=== PATIENT | male | born 1955 | race Two or more races ===

== ENCOUNTER 2020-04-28 08:34 | Inpatient (IN) | payer OTHER ==
[2020-04-28] VITALS (11 sets, daily range): BP systolic 125–160; BP diastolic 54–103
[~2020-04-28] VITALS: Ht 170.2 cm; Wt 77.1 kg
--- NOTE | 2020-04-28 08:45 | Emergency Room Report ---
History of Present Illness General Chief Complaint: Altered Level of Consciousness Present Illness HPI Male here with altered mental status. Patient is a Paresh Martínez. Per education paraprofessional report the patient was found outside a liquor store. Liquor store wire spinner had sold the patient 2 bottles of vodka last night and when the store wire spinner came to open the store this morning the patient was laying on the sidewalk in front of the liquor store next to two empty vodka bottles. When paramedics arrived the patient was mumbling incoherently. Patient unable to participate in review of systems secondary to altered mental status. Allergies: Coded Allergies: No Known Allergies (Unverified , 04/28/20) COVID-19 Screening Contact w/high risk pt: No Experienced COVID-19 symptoms?: No COVID-19 Testing performed INTERNAL COMBUSTION ENGINE SUBASSEMBLER: No Review of Systems All Other Systems: limited - Altered mental status Physical Exam Vital Signs Date Time Temp Pulse Resp B/P (MAP) Pulse Ox O2 Delivery O2 Flow Rate FiO2 04/28/20 08:34 82 14 154/109 (124) 98 Room Air Sp02 EP Interpretation: reviewed, normal General Appearance: no apparent distress, non-toxic, other - Mumbles incoherently. Smells of alcohol Head: normocephalic, atraumatic Eyes: bilateral eye normal inspection, bilateral eye PERRL ENT: hearing grossly normal, normal pharynx, no angioedema Neck: full range of motion, supple/symm/no masses Respiratory: chest non-tender, lungs clear, normal breath sounds, speaking full sentences Cardiovascular #1: regular rate, rhythm, no edema Cardiovascular #2: 2+ carotid (R), 2+ carotid (L), 2+ radial (R), 2+ radial (L), 2+ dorsalis pedis (R), 2+ dorsalis pedis (L) Gastrointestinal: normal bowel sounds, non tender, soft, non-distended, no guarding, no rebound Rectal: deferred Genitourinary: normal inspection, no CVA tenderness Musculoskeletal: back normal, normal range of motion, gait/station normal, non- tender Neurologic: sensory intact, other - Appears heavily intoxicated. Mumbles incoherently. Eyes are closed but patient responds to pain. Moves all extremities equally Psychiatric: judgement/insight normal, memory normal, mood/affect normal, no suicidal/homicidal ideation Lymphatic: no adenopathy Medical Decision Making Diagnostic Impression: Primary Impression: Altered level of consciousness ER Course Procedure: CT Head no Contrast EXAM: CT CT Head no Contrast INDICATION: Altered mental status. TECHNIQUE: Axial images of the brain were obtained with subsequent sagittal and coronal reformats. All CT scans at this facility are performed using dose modulation techniques as appropriate to a performed exam including the following: automated exposure control with adjustment of the mA and/or kV according to patient size. COMPARISON STUDY: None. RADIATION DOSE: CTDIvol: 53.4 mGy DLP: 1045.5 mGy-cm Dose information generated by the CT scanner is available in PACS. FINDINGS: Age related volume loss noted. There is no acute large territory cortical infarct, hemorrhage, mass effect or shift. Ventricles and cisterns as well as brainstem and posterior fossa appear unremarkable. The sellar region is normal. Sinuses, mastoid air cells and bony calvarium appear intact. IMPRESSION: AGE RELATED SENESCENT CHANGES. NO ACUTE INTRACRANIAL ABNORMALITY. Laboratory Tests Test 04/28/20 09:04 04/28/20 09:41 04/28/20 10:00 White Blood Count 2.5 K/UL (4.8-10.8) L Red Blood Count 5.14 M/UL (4.70-6.10) Hemoglobin 14.8 G/DL (14.2-18.0) Hematocrit 45.8 % (42.0-52.0) Mean Corpuscular Volume 89 FL (80-99) Mean Corpuscular Hemoglobin 28.8 PG (27.0-31.0) Mean Corpuscular Hemoglobin Concent 32.3 G/DL (32.0-36.0) Red Cell Distribution Width 17.2 % (11.6-14.8) H Platelet Count 381 K/UL (150-450) Mean Platelet Volume 6.4 FL (6.5-10.1) L Neutrophils (%) (Auto) % (45.0-75.0) Lymphocytes (%) (Auto) % (20.0-45.0) Monocytes (%) (Auto) % (1.0-10.0) Eosinophils (%) (Auto) % (0.0-3.0) Basophils (%) (Auto) % (0.0-2.0) Differential Total Cells Counted 100 Neutrophils % (Manual) 51 % (45-75) Lymphocytes % (Manual) 44 % (20-45) Monocytes % (Manual) 5 % (1-10) Eosinophils % (Manual) 0 % (0-3) Basophils % (Manual) 0 % (0-2) Band Neutrophils 0 % (0-8) Platelet Estimate Adequate Platelet Morphology Normal Anisocytosis 2+ Sodium Level 143 MMOL/L (136-145) Potassium Level 4.9 MMOL/L (3.5-5.1) Chloride Level 106 MMOL/L (98-107) Carbon Dioxide Level 24 MMOL/L (21-32) Anion Gap 13 mmol/L (5-15) Blood Urea Nitrogen 7 mg/dL (7-18) Creatinine 0.3 MG/DL (0.55-1.30) L Estimated Glomerular Filtration Rate > 60 mL/min (>60) Glucose Level 110 MG/DL (74-106) H Calcium Level 8.5 MG/DL (8.5-10.1) Total Bilirubin 0.4 MG/DL (0.2-1.0) Aspartate Amino Transferase (AST) 87 U/L (15-37) H Alanine Aminotransferase (ALT) 47 U/L (12-78) Alkaline Phosphatase 119 U/L (46-116) H Total Protein 7.8 G/DL (6.4-8.2) Albumin 3.7 G/DL (3.4-5.0) Globulin 4.1 g/dL Albumin/Globulin Ratio 0.9 (1.0-2.7) L Salicylates Level 1.7 ug/mL (2.8-20) L Acetaminophen Level < 2 MCG/ML (10-30) L Serum Alcohol 380 mg/dL Urine Opiates Screen Negative (NEGATIVE) Urine Barbiturates Screen Positive (NEGATIVE) H Phencyclidine (PCP) Screen Negative (NEGATIVE) Urine Amphetamines Screen Negative (NEGATIVE) Urine Benzodiazepines Screen Positive (NEGATIVE) H Urine Cocaine Screen Negative (NEGATIVE) Urine Marijuana (THC) Screen Negative (NEGATIVE) Male of unknown age here with alcohol intoxication. CT head unremarkable. Patient highly elevated alcohol level of 380. Urine drug screen positive for benzodiazepines and barbiturates. Patient began to awaken soon after arrival to the emergency department. He was screaming obscenities at the nurses and was given Haldol and Ativan. He required another dose of IV Ativan, 4 mg total. P atient was sleeping soundly in the emergency department. He started to have mild tremulousness and was given 50 mg of p.o. Librium, thiamine, folate. Signed out to oncoming physician pending sobriety. Last Vital Signs Date Time Temp Pulse Resp B/P (MAP) Pulse Ox O2 Delivery O2 Flow Rate FiO2 04/28/20 08:34 82 14 154/109 (124) 98 Room Air Imtiaz Johnson M.D. Apr 28, 2020 08:45
--- NOTE | 2020-04-28 09:00 | NUR ---
ED Nurse Note: Pt BIBA R26 possible overdose ETOH. Pt was found on streets, current GCS is 5. Pt is a&ox0, sleeping, drowsy, responsive to pain stimulation. Pt is set up on monitor. Hands are cold to touch. Blood drawn and sent to lab.
--- NOTE | 2020-04-28 09:05 | NUR ---
ED Nurse Note: Pt taken to CT.
[2020-04-28 09:16] LABS: HEMATOCRIT 45.8 % (42.0-52.0); HEMOGLOBIN 14.8 G/DL (14.2-18.0); MEAN CORPUSCULAR VOLUME 89 FL (80-99); PLATELET COUNT 381 K/UL (150-450); RED BLOOD COUNT 5.14 M/UL (4.70-6.10); RED CELL DISTRIBUTION WIDTH 17.2 % (11.6-14.8); WHITE BLOOD COUNT 2.5 K/UL (4.8-10.8)
--- NOTE | 2020-04-28 09:16 | NUR ---
ED Nurse Note: Pt returned from CT.
[2020-04-28 09:59] LABS: ANION GAP 13 mmol/L (5-15); BLOOD UREA NITROGEN 7 mg/dL (7-18); CALCIUM 8.5 MG/DL (8.5-10.1); CARBON DIOXIDE 24 MMOL/L (21-32); CHLORIDE 106 MMOL/L (98-107); CREATININE 0.3 MG/DL (0.55-1.30); POTASSIUM 4.9 MMOL/L (3.5-5.1); SODIUM 143 MMOL/L (136-145)
[2020-04-28] MEDS ORDERED: Haloperidol 5mg/ml Inj IM ONE ×2 (10:00→20:30)
[2020-04-28 10:04] LABS: ALANINE AMINOTRANSFERASE 47 U/L (12-78); ALBUMIN 3.7 G/DL (3.4-5.0); ALBUMIN/GLOBULIN RATIO 0.9 (1.0-2.7); ALKALINE PHOSPHATASE 119 U/L (46-116); ASPARTATE AMINO TRANSFERASE 87 U/L (15-37); BILIRUBIN,TOTAL 0.4 MG/DL (0.2-1.0)
--- NOTE | 2020-04-28 10:05 | Diagnostic Imaging Report ---
EXAM: CT CT Head no Contrast INDICATION: Altered mental status. TECHNIQUE: Axial images of the brain were obtained with subsequent sagittal and coronal reformats. All CT scans at this facility are performed using dose modulation techniques as appropriate to a performed exam including the following: automated exposure control with adjustment of the mA and/or kV according to patient size. COMPARISON STUDY: None. RADIATION DOSE: CTDIvol: 53.4 mGy DLP: 1045.5 mGy-cm Dose information generated by the CT scanner is available in PACS. FINDINGS: Age related volume loss noted. There is no acute large territory cortical infarct, hemorrhage, mass effect or shift. Ventricles and cisterns as well as brainstem and posterior fossa appear unremarkable. The sellar region is normal. Sinuses, mastoid air cells and bony calvarium appear intact. IMPRESSION: AGE RELATED SENESCENT CHANGES. NO ACUTE INTRACRANIAL ABNORMALITY.
[2020-04-28] MEDS ORDERED: LORazepam Inj 2mg/ml 1ml IV ONE ×4 (10:15→19:45)
--- NOTE | 2020-04-28 11:00 | NUR ---
ED Nurse Note: Pt is restless. ERMD notified, will order meds.
[2020-04-28] MEDS ORDERED: chlordiazePOXIDE 25mg Cap ORAL ONE (11:15)
[2020-04-28] MEDS ORDERED: Thiamine 100mg tab ORAL ONE (11:15)
--- NOTE | 2020-04-28 13:45 | NUR ---
ED Nurse Note: Pt snoring in bed, VSS.
[2020-04-28] MEDS ORDERED: Thiamine 100mg tab ONE (13:54)
[2020-04-28] MEDS ORDERED: chlordiazePOXIDE 25mg Cap ONE (13:54)
--- NOTE | 2020-04-28 15:37 | NUR ---
ED Nurse Note: Pt is a&ox3, awake, calm. ERMD notified. He is able to give his name.
--- NOTE | 2020-04-28 17:00 | NUR ---
ED Nurse Note: Pt pulled out F/C, there is small amount of bleeding. ERMD is aware. No new orders for now.
--- NOTE | 2020-04-28 19:22 | NUR ---
HAND-OFF: Report given to Natalya MCGRATH.
--- NOTE | 2020-04-28 19:25 | NUR ---
ED Nurse Note: Recieved pt in bed awake and alert, pt has name of monica suarez but gave name, reported to md and charge nurse, pt has large amopunt of blood on him and clothing completely soiled with blood, pt had feliz which looks as if he pulled out with balloon still inflated and blood all over, pt was palced on cardiac monitoring with heart rate of 150's, pt noted with severe tremors and shaking and asking for water, pt cleaned, MD informed, new orders recieved, will resume care as ordered and closely monitor.
--- NOTE | 2020-04-28 19:56 | NUR ---
ED Nurse Note: Recived care of pt dt need of isolation room. Pt is tachy 150's and states he has body pains, notable tremors in both arms, pt is able to speak in complete sentances and make needs known.
[2020-04-28] MEDS ORDERED: LORazepam Inj 2mg/ml 1ml IM ONE (20:30)
--- NOTE | 2020-04-28 20:30 | NUR ---
ED Nurse Note: Pt is aggitated, pulled out his IV, changed bedding and clothes, pt is yelling at staff, a/o/2
[2020-04-28] MEDS ORDERED: LORazepam Inj 2mg/ml 1ml ONE (20:33)
[2020-04-28] MEDS ORDERED: Haloperidol 5mg/ml Inj ONE (20:33)
--- NOTE | 2020-04-28 20:47 | NUR ---
ED Nurse Note: New ICV is placed, fluids are running as ordered. IM meds given
--- NOTE | 2020-04-28 20:58 | NUR ---
ED Nurse Note: ER MD aware of HR, he is at bedside.
[2020-04-28] MEDS ORDERED: LORazepam 20 MG in NS 90 ML IV ONE (21:00)
--- NOTE | 2020-04-28 21:50 | Emergency Room Report ---
History of Present Illness General Chief Complaint: Altered Level of Consciousness Source: EMS Present Illness Allergies: Coded Allergies: No Known Allergies (Unverified , 04/28/20) COVID-19 Screening Contact w/high risk pt: No Experienced COVID-19 symptoms?: No COVID-19 Testing performed PROPERTY MANAGEMENT INTERN: No Nursing Documentation-[facility] Past Medical History Deferred: Pt Cognitively Impaired Physical Exam Vital Signs Date Time Temp Pulse Resp B/P (MAP) Pulse Ox O2 Delivery O2 Flow Rate FiO2 04/28/20 08:34 82 14 154/109 (124) 98 Room Air 04/28/20 19:25 98.8 Procedures Critical Care Time Critical Care Time i. I feel this is a highly complex case requiring extensive working including EKG/Rhythm strip, Xray/CT/US, Blood/urine lab work, repeat exams while in ED, and administration of strong opiates/narcotics for pain control, admission to hospital or close patient follow up. Total time: 90 min bedside evaluation and treatment excludes procedures (EKG). Reason for critical care: Alcohol withdrawal, tachycardia, altered level of consciousness Possible complications: hypotension, hypertension, PR, shock, arrhythmias, metabolic acidosis, end organ damage, respiratory failure. Interventions: Labs, fluids, haldol/Ativan, CT head, cardiac monitoring, Ativan drip Course: Patient signed out to me pending sobriety. Brought in for alcohol intoxication. Alcohol level elevated. Drug screen positive for barbiturates and benzos. Patient remains confused and very tremulous. CT head negative. After multiple rounds of Ativan and Haldol patient remains disoriented and tachycardic. Started on Ativan drip. Patient will be admitted to ICU Consultations: nursing staff, EMS, family Performed by: Dr Macias Tolerated well condition = critical j. because of unstable vital signs this patient had a condition that could potentially threaten life or limb. I feel this is a critical patient who required my full attention while patient was considered critical. Total Critical Care Time excluding procedures was greater than 90 minutes Medical Decision Making Diagnostic Impression: Primary Impression: Altered level of consciousness Additional Impression: Alcohol withdrawal Qualified Codes: F10.239 - Alcohol dependence with withdrawal, unspecified ER Course Signed out to me pending sobriety Brought in by EMS for altered level of consciousness. CT head negative. Alcohol greater than 300. Drug screen positive for benzos and barbiturates And agitated. Given Haldol/Ativan. When awake patient remains very tremulous. Tachycardic. Despite multiple rounds of Ativan IV fluids and Haldol patient remains unchanged. Tachycardic to the 160s. Started on Ativan drip. Will go to the ICU Laboratory Tests Test 04/28/20 09:04 04/28/20 09:41 04/28/20 10:00 White Blood Count 2.5 K/UL (4.8-10.8) L Red Blood Count 5.14 M/UL (4.70-6.10) Hemoglobin 14.8 G/DL (14.2-18.0) Hematocrit 45.8 % (42.0-52.0) Mean Corpuscular Volume 89 FL (80-99) Mean Corpuscular Hemoglobin 28.8 PG (27.0-31.0) Mean Corpuscular Hemoglobin Concent 32.3 G/DL (32.0-36.0) Red Cell Distribution Width 17.2 % (11.6-14.8) H Platelet Count 381 K/UL (150-450) Mean Platelet Volume 6.4 FL (6.5-10.1) L Neutrophils (%) (Auto) % (45.0-75.0) Lymphocytes (%) (Auto) % (20.0-45.0) Monocytes (%) (Auto) % (1.0-10.0) Eosinophils (%) (Auto) % (0.0-3.0) Basophils (%) (Auto) % (0.0-2.0) Differential Total Cells Counted 100 Neutrophils % (Manual) 51 % (45-75) Lymphocytes % (Manual) 44 % (20-45) Monocytes % (Manual) 5 % (1-10) Eosinophils % (Manual) 0 % (0-3) Basophils % (Manual) 0 % (0-2) Band Neutrophils 0 % (0-8) Platelet Estimate Adequate Platelet Morphology Normal Anisocytosis 2+ Sodium Level 143 MMOL/L (136-145) Potassium Level 4.9 MMOL/L (3.5-5.1) Chloride Level 106 MMOL/L (98-107) Carbon Dioxide Level 24 MMOL/L (21-32) Anion Gap 13 mmol/L (5-15) Blood Urea Nitrogen 7 mg/dL (7-18) Creatinine 0.3 MG/DL (0.55-1.30) L Estimat Glomerular Filtration Rate > 60 mL/min (>60) Glucose Level 110 MG/DL (74-106) H Calcium Level 8.5 MG/DL (8.5-10.1) Total Bilirubin 0.4 MG/DL (0.2-1.0) Aspartate Amino Transf (AST/SGOT) 87 U/L (15-37) H Alanine Aminotransferase (ALT/SGPT) 47 U/L (12-78) Alkaline Phosphatase 119 U/L (46-116) H Total Protein 7.8 G/DL (6.4-8.2) Albumin 3.7 G/DL (3.4-5.0) Globulin 4.1 g/dL Albumin/Globulin Ratio 0.9 (1.0-2.7) L Salicylates Level 1.7 ug/mL (2.8-20) L Acetaminophen Level < 2 MCG/ML (10-30) L Serum Alcohol 380 mg/dL Urine Opiates Screen Negative (NEGATIVE) Urine Barbiturates Screen Positive (NEGATIVE) H Phencyclidine (PCP) Screen Negative (NEGATIVE) Urine Amphetamines Screen Negative (NEGATIVE) Urine Benzodiazepines Screen Positive (NEGATIVE) H Urine Cocaine Screen Negative (NEGATIVE) Urine Marijuana (THC) Screen Negative (NEGATIVE) CT/MRI/US Diagnostic Results CT/MRI/US Diagnostic Results : Imaging Test Ordered: CT Head Impression Procedure: CT Head no Contrast EXAM: CT CT Head no Contrast INDICATION: Altered mental status. TECHNIQUE: Axial images of the brain were obtained with subsequent sagittal and coronal reformats. All CT scans at this facility are performed using dose modulation techniques as appropriate to a performed exam including the following: automated exposure control with adjustment of the mA and/or kV according to patient size. COMPARISON STUDY: None. RADIATION DOSE: CTDIvol: 53.4 mGy DLP: 1045.5 mGy-cm Dose information generated by the CT scanner is available in PACS. FINDINGS: Age related volume loss noted. There is no acute large territory cortical infarct, hemorrhage, mass effect or shift. Ventricles and cisterns as well as brainstem and posterior fossa appear unremarkable. The sellar region is normal. Sinuses, mastoid air cells and bony calvarium appear intact. IMPRESSION: AGE RELATED SENESCENT CHANGES. NO ACUTE INTRACRANIAL ABNORMALITY. Last Vital Signs Date Time Temp Pulse Resp B/P (MAP) Pulse Ox O2 Delivery O2 Flow Rate FiO2 04/28/20 21:30 20 Room Air 04/28/20 20:58 98.6 165 135/83 100 Status: improved Disposition: ADMITTED INPATIENT Condition: Critical Referrals: NOT CHOSEN IPA/,REFERRING (PCP) Baldev Macias MD Apr 28, 2020 21:49
--- NOTE | 2020-04-28 22:05 | NUR ---
ED Nurse Note: Replaced the pts trini that he pulled out per ER MD order. Ativan drip started. Pt HR is 148. Pt extremely aggitated.
[2020-04-28] MEDS ORDERED: LORazepam 20 MG in NS 90 ML IV SCH (22:15)
--- NOTE | 2020-04-28 22:45 | NUR ---
ED Nurse Note: Report given to ALCIDES Cordero
--- NOTE | 2020-04-28 23:00 | NUR ---
NURSE NOTES: received report from ALCIDES Oconnell. Patient admitted from ER via gurney accompanied by PSYCH RN and scuba diving instructor. patient awake,alert to name with confusion and forgetfulness, restless. On Ativan 2mg/hr, NS at 150cc/hr. Patient admitted for ETOH and AMS under the care of Dr. Isaac. Patient oxygen saturation Room air 100%. Body assessment done noted with dry skin. skin redness on left elbow skin warm to touch, multiple dry scab om right foot. .HOB elevated. Norton intact with hematuria and bleeding patient pulled out Norton from ER per Er report. Instructed patient to use call light for assistance. bed alarm on. bed locked and in low position.call light within easy reach. will continue plan of care.
--- NOTE | 2020-04-28 23:13 | NUR ---
NURSE NOTES: called Dr. Isaac and left message for admission orders.
--- NOTE | 2020-04-28 23:21 | NUR ---
TRANSFER TO FLOOR: Patient transferred to as ordered, per ER MD. Report given to Consuelo MCGRATH. Belongings sent with pt. Transfered on tele monitor with RN and tech assist. saftey maintained. Room 246 G ICU
--- NOTE | 2020-04-28 23:23 | NUR ---
NURSE NOTES: Dr. Hackett called back gave order for Ativan per MD he will put the admission order.
[2020-04-28] MEDS ORDERED: Thiamine 100mg in D5W 55ml IVPB ONE (23:30)
[2020-04-28] MEDS ORDERED: Folic Acid 1 MG, Magnesium Sulfate 2,000 MG, Multivitamin - 12 Injection 10 ML in Sodiu... IV SCH (23:30)
[2020-04-28] MEDS: LORazepam 20 MG in NS 90 ML IV SCH (23:43)
[2020-04-28] MEDS: Pantoprazole Inj IVP SCH (23:46)
[2020-04-29] VITALS (26 sets, daily range): BP systolic 104–166; BP diastolic 57–104
[2020-04-29] MEDS ORDERED: Thiamine HCl 100mg/ml 2 ml Inj ONE (00:06)
--- NOTE | 2020-04-29 01:23 | NUR ---
NURSE NOTES: patient in bed awake,alert to name, patient restless with episode of pulling out tubing and IV line encouraged pt to verbalized needs,fears and feelings to staff, explained the importance and risk and benefits of Norton and IV tubing. patient with bilateral wrist restraint. call light within easy reach.
[2020-04-29] MEDS: cefTRIAXone 1 GM in D5W 55 ML IVPB SCH (02:45)
--- NOTE | 2020-04-29 03:00 | NUR ---
NURSE NOTES: patient swab for COVID 19 PCR. send to lab.
--- NOTE | 2020-04-29 04:00 | NUR ---
NURSE NOTES: patient with episode of x1 BM, kept clean and dry. frequent visual checks. call light within easy reach. will continue plan of care.
[2020-04-29 05:06] LABS: HEMATOCRIT 33.6 % (42.0-52.0); HEMOGLOBIN 10.5 G/DL (14.2-18.0); LYMPHOCYTES % (AUTO) 13.9 % (20.0-45.0); MEAN CORPUSCULAR VOLUME 91 FL (80-99); MONOCYTES % (AUTO) 12.5 % (1.0-10.0); NEUTROPHILS % (AUTO) 70.6 % (45.0-75.0); PLATELET COUNT 289 K/UL (150-450); RED BLOOD COUNT 3.72 M/UL (4.70-6.10); RED CELL DISTRIBUTION WIDTH 17.6 % (11.6-14.8); WHITE BLOOD COUNT 6.4 K/UL (4.8-10.8)
--- NOTE | 2020-04-29 05:31 | NUR ---
NURSE NOTES: patient in bed sleeping comfortably. no s/s of acute distress noted. comfort measure provided. will continue plan of care.
[2020-04-29 05:34] LABS: ALANINE AMINOTRANSFERASE 31 U/L (12-78); ALBUMIN 2.8 G/DL (3.4-5.0); ALBUMIN/GLOBULIN RATIO 0.9 (1.0-2.7); ALKALINE PHOSPHATASE 89 U/L (46-116); ANION GAP 14 mmol/L (5-15); ASPARTATE AMINO TRANSFERASE 56 U/L (15-37); BILIRUBIN,TOTAL 0.6 MG/DL (0.2-1.0); BLOOD UREA NITROGEN 7 mg/dL (7-18); CALCIUM 7.9 MG/DL (8.5-10.1); CARBON DIOXIDE 22 MMOL/L (21-32); CHLORIDE 104 MMOL/L (98-107); CREATININE 0.7 MG/DL (0.55-1.30); POTASSIUM 3.9 MMOL/L (3.5-5.1); SODIUM 140 MMOL/L (136-145)
[2020-04-29] MEDS: LORazepam 20 MG in NS 90 ML IV SCH (06:55)
--- NOTE | 2020-04-29 06:59 | NUR ---
CASE MANAGEMENT:REVIEW 59 YR OLD MALE BIBA FROM STREET CC: ALOC. FOUND WITH 2 EMPTY BOTTLES OF VODKA SI: ALCOHOL WITHDRAWAL. AMS 98.8 82 14 154/109 98% ON RA WBC-2.5 SERUM ALCOHOL+380 IS: 1L NS BOLUS IV ATIVAN X5 HALDOL IM X2 IV BANANA BAG IV THIAMINE LIBRIUM PO CT HEAD : TO ICU PLAN: NOVEL COVID PENDING
--- NOTE | 2020-04-29 07:20 | NUR ---
NURSE HAND-OFF REPORT: Latest Vital Signs: Temperature 98.0 , Pulse 128 , B/P 119 /70 , Respiratory Rate 23 , O2 SAT 100 , Room Air, O2 Flow Rate . Vital Sign Comment: EKG Rhythm: Sinus Tachycardia Rhythm change?: N Notified?: Nan -Dr. Roxann REDDY Response: Latest Mo Fall Score: 50 Fall Risk: High Risk Safety Measures: Call light Within Reach, Bed Alarm Zone 2, Side Rails Side Rails x2, Bed position Low and Locked. Fall Precautions: Yellow Socks Door Sign Patient Fall Education Report given to .
--- NOTE | 2020-04-29 07:22 | NUR ---
NURSE NOTES: Received report from ALCIDES Cordero. Patient is AAO x 2-3 w/ intermittent confusion. On room air. Feliz intact and draining with dark natasha color urine, s/p pulled out feliz. Right FA 20G IV intact and running with NS @150ml/hr, ativan 2mg/hr. Bilateral soft wrist bands restraints on. Bed at lowest position. Kept dry, clean and comfortable. Will continue plan of care.
[2020-04-29] MEDS ORDERED: Thiamine 100mg in D5W 55ml IVPB ONE (08:00)
[2020-04-29] MEDS ORDERED: Folic Acid 1 MG, Magnesium Sulfate 2,000 MG, Multivitamin - 12 Injection 10 ML in Sodiu... IV ONE (08:00)
[2020-04-29] MEDS ORDERED: Folic Acid 1 MG, Magnesium Sulfate 2,000 MG, Multivitamin - 12 Injection 10 ML in Sodiu... IV SCH (09:00)
[2020-04-29] MEDS ORDERED: Thiamine 100mg in D5W 55ml IVPB SCH (09:00)
[2020-04-29] MEDS: Pantoprazole Inj IVP SCH (09:09)
--- NOTE | 2020-04-29 10:00 | NUR ---
RADIOLOGY DEPT., CHEST X-RAY DONE.-P.DYE
--- NOTE | 2020-04-29 10:36 | NUR ---
NURSE NOTES: Seen by Dr. Hackett and assessed patient. Updated patient's status and new orders read back, confirmed.
--- NOTE | 2020-04-29 10:52 | NUR ---
OPERATIONS TEAM LEADER NOTE SW attempted to meet w/ pt for psychosocial assessment. Pt was sleeping and did not respond to this SW. SW will attempt later.
--- NOTE | 2020-04-29 11:02 | NUR ---
NURSE NOTES: Wasted ativan 63.04 ml. Witnessed with ALCIDES Patricio.
--- NOTE | 2020-04-29 13:17 | Diagnostic Imaging Report ---
Indication: Cough Technique: One view of the chest Comparison: none Findings: Lungs and pleural spaces are clear. The heart size is normal. Impression: Negative
--- NOTE | 2020-04-29 14:08 | NUR ---
ELECTRONIC TECHNICIAN NOTE Pt presents as weak. Pt reports his name is Steven Gonzalez, and is 1954. SW was unable to clarify the month. SW will attempt to obtain more information when pt becomes more alert.
[2020-04-29] MEDS: LORazepam Inj 2mg/ml 1ml IV PRN (15:48)
--- NOTE | 2020-04-29 15:48 | NUR ---
NURSE NOTES: Patient is agitated and trying to get up. Explained safety and restraints. Unable to understand. Ativan 2mg given as ordered.
--- NOTE | 2020-04-29 16:18 | NUR ---
NURSE NOTES: Patient asleep.
--- NOTE | 2020-04-29 16:42 | NUR ---
NURSE NOTES: Bed bath given. Patient is still confused and restless. Reoriented and redirect patient. Will continue plan of care.
--- NOTE | 2020-04-29 18:55 | NUR ---
NURSE NOTES: Seen by Dr. Hackett and assessed patient. He said okay to transfer to [facility].
--- NOTE | 2020-04-29 19:13 | NUR ---
NURSE HAND-OFF REPORT: Latest Vital Signs: Temperature 98.1 , Pulse 105 , B/P 122 /81 , Respiratory Rate 19 , O2 SAT 95 , Room Air, O2 Flow Rate . Vital Sign Comment: EKG Rhythm: Sinus Tachycardia Rhythm change?: N Notified?: Nan Hackett MD Response: monitor Latest Mo Fall Score: 50 Fall Risk: High Risk Safety Measures: Call light Within Reach, Bed Alarm Zone 1, Side Rails Side Rails x3, Bed position Low and Locked. Fall Precautions: Door Sign Report given to ALCIDES Frankel. Endorsed plan of care.
--- NOTE | 2020-04-29 19:15 | NUR ---
NURSE NOTES: Report received from ALCIDES Rhoades. Upon assessment pt is A/Ox3; not oriented to place. PERRLA. Turkish speaker and able to make needs known. 5-lead EKG shows Sinus [place] 110 BPM. Lowgrade temp of 99.9 axil. Cooling measures initiated Clear breath sounds saturating 96% on room air. Right forearm IV patent and intact running NS @ 150 mL. Left hand IV patent and intact. RLQ bowel sounds auscultated. Blood observed around penis area for attempting to remove feliz. Feliz draining well to gravity. Bilateral soft wrist restraints noted. Will assess ability to wean off restraints per protocol. Bed kept in lowest and locked position. Bed alarm on, side rails up x3. Will continue monitoring.
--- NOTE | 2020-04-29 21:00 | NUR ---
NURSE NOTES: Patient observed attempting to get out of bed despite all needs met. Offered fluids and snacks. Per patient, his name is "BIBIANA KHAN." When asking patient if he's in pain, "0/10 pain. He needs to go #2." Offered bedpan and reassured patient I will clean him.
--- NOTE | 2020-04-29 23:00 | NUR ---
NURSE NOTES: No BM. Bed bath and fluids/offered. Taught pt not to pull on feliz and hang legs off of bed. Will monitor.
[2020-04-30] VITALS (17 sets, daily range): BP systolic 124–155; BP diastolic 66–92
--- NOTE | 2020-04-30 01:33 | NUR ---
NURSE NOTES: Patient continues to attempt to get out of bed. States he would like to go to [employer] to get a drink. No distress noted. Will give PRN and monitor.
--- NOTE | 2020-04-30 01:58 | NUR ---
NURSE NOTES: Pt is noncompliant and restraints clinically indicated. PRN given. Will monitor.
[2020-04-30] MEDS: LORazepam Inj 2mg/ml 1ml IV PRN ×6 (02:00→20:58)
[2020-04-30] MEDS: cefTRIAXone 1 GM in D5W 55 ML IVPB SCH (02:00)
--- NOTE | 2020-04-30 03:22 | NUR ---
NURSE NOTES: Pt continues to hang legs on side of bed despite PRN, repositioning, and all needs met.
--- NOTE | 2020-04-30 07:20 | NUR ---
NURSE NOTES: Received report from ALCIDES Frankel. Patient is AOx3 belarusian speaker and able to make needs known. Cardac monitor in place currently sinus tach @119 BPM. Patient with RFA IV patent and intact. Patient with feliz draining well, noted with slight blood tinge urine at this time. Bed in lowest position locked with side rails x3 up. Bilateral soft wrist restraints noted. Will assess ability to wean off restraints per protocol. Call light within reach.
--- NOTE | 2020-04-30 07:30 | NUR ---
NURSE HAND-OFF REPORT: Important Events on Shift: Transfered from ICU to SDU Bed 45. Patient Status: Stable Diet: Regular Pending Orders: Pending Results/Labs: Pending MD notification: Latest Vital Signs: Temperature 98.9 , Pulse 108 , B/P 122 /89 , Respiratory Rate 26 , O2 SAT 100 , Room Air, O2 Flow Rate . Vital Sign Comment: WNL EKG Rhythm: Sinus Tachycardia Rhythm change?: N MD Notified?: Nan Hackett MD Response: Latest Mo Fall Score: 50 Fall Risk: High Risk Safety Measures: Call light Within Reach, Bed Alarm Zone 1, Side Rails Side Rails x3, Bed position Low and Locked. Fall Precautions: Door Sign Report given to ALCIDES Rainey.
[2020-04-30] MEDS: Pantoprazole Inj IVP SCH (08:49)
--- NOTE | 2020-04-30 11:56 | NUR ---
DRY HOUSE OPERATOR NOTE Pt presents as A&O 3x. PT admits that he visited [facility] [place] in the past. Pt has been homeless for 2 years. Pt is unemployed and receives no income. PT has two children. Pt shares that he has been drinking 3-4 bottles of beer for a week. ETOH level was 380 prior to admission. UDS positive for Benzo and Barbiturates. SW explained the negative impacts of substance abuse in his lifestyle and health. PT verbalizes that he does not think he is drinking a lot and denies other substance abuse. PT declined counseling/tx intervention on substance abuse. Pt does not appear to be motivated to reduce his ETOH consumption. Per chart review from previous visit, pt's emergency contact is listed as his ex- Gill Gonzalez [phone]. Pt is focusing on discharge but he does not have a place to go. PT is currently PUI. Pt reports he is ambulatory w/o DME. However, pt appears to be weak. SW will continue to F/U w/ dc planning.
--- NOTE | 2020-04-30 14:17 | NUR ---
CASE MANAGEMENT:REVIEW 04/30/20 SI: ALCOHOL WITHDRAWAL. AMS. PUI 97.8 105 23 128/86 98% ON RA IS: IV MAG SULFATE Q1HRS X2 IV ROCEPHIN Q24 IVF@75/HR IV PROTONIX QD HEPARIN SQ Q12 : STEP DOWN UNIT DCP: HOMELESS PLAN: DOWNGRADE TO TELEMETRY
--- NOTE | 2020-04-30 18:51 | NUR ---
NURSE HAND-OFF REPORT: Important Events on Shift:NA Patient Status: Stable Diet: Regular Pending Orders: NA Pending Results/Labs:NA Pending notification:NA Latest Vital Signs: Temperature 97.9 , Pulse 101 , B/P 128 /80 , Respiratory Rate 23 , O2 SAT 98 , Room Air, O2 Flow Rate . Vital Sign Comment: Stable EKG Rhythm: Sinus Tachycardia Rhythm change?: N MD Notified?: Nan Hackett MD Response: Latest Mo Fall Score: 50 Fall Risk: High Risk Safety Measures: Call light Within Reach, Bed Alarm Zone 1, Side Rails Side Rails x3, Bed position Low and Locked. Fall Precautions: Door Sign Report given to Pending.
--- NOTE | 2020-04-30 20:02 | NUR ---
NURSE NOTES: Received pt and report from ALCIDES Madrid. Observed pt resting in bed with both eyes closed; arousable to voice and light shake. Pt is A/Ox1. pediatrician is in placed; pt is ST (114 bpm). IV site intact, asymptomatic, and patent; running NS @ 75ml/hr. Pt is on RA; sating at 98%. No SOB noted. Sz precaution noted; side rails padded, oxygen and suction at bedside. Bed is in the lowest position, locked, and alarmed. Call light and bedside table is within reach. No signs/symptoms of acute distress noted. No Sz noted. Will continue plan of care.
--- NOTE | 2020-04-30 20:15 | NUR ---
NURSE NOTES: Complete bed bath done. Fed pt crackers and juice. Pt tolerated well.
[2020-04-30] MEDS: Heparin 5000 units/ml inj SUBQ SCH (20:41)
[2020-04-30] MEDS ORDERED: Heparin 5000 units/ml inj SUBQ SCH (21:00)
[2020-04-30] MEDS ORDERED: Cefepime HCl 1 GM in D5W 55 ML IVPB SCH (21:00)
[2020-04-30] MEDS ORDERED: Vancomycin 1.25gm/250ml Premix IVPB ONE (21:00)
[2020-04-30] MEDS ORDERED: NovoLOG Insulin Flexpen SUBQ SCH (21:00)
--- NOTE | 2020-04-30 23:06 | Cardiology Progress Note ---
Subjective DATE OF SERVICE: Apr 30, 2020 Still with confusion, but more directable No fevers Objective Last 24 Hour Vital Signs Date Time Temp Pulse Resp B/P (MAP) Pulse Ox O2 Delivery O2 Flow Rate FiO2 04/30/20 21:28 88 24 131/87 98 04/30/20 20:58 114 24 124/80 98 04/30/20 20:00 97 04/30/20 20:00 Room Air 04/30/20 20:00 98.0 106 22 124/80 (95) 98 04/30/20 18:02 101 23 128/80 98 04/30/20 17:32 118 25 132/90 98 04/30/20 16:00 Room Air 04/30/20 16:00 121 04/30/20 16:00 97.9 94 20 136/81 (99) 98 04/30/20 14:24 94 20 130/88 99 04/30/20 13:54 105 23 128/86 98 04/30/20 12:00 97.8 94 19 138/88 (105) 98 04/30/20 12:00 Room Air 04/30/20 11:34 104 04/30/20 10:34 90 20 140/90 98 04/30/20 10:04 88 24 138/86 98 04/30/20 08:00 Room Air 04/30/20 08:00 98.1 76 19 141/92 (108) 98 04/30/20 07:46 121 04/30/20 06:08 108 26 122/89 100 04/30/20 06:00 92 15 139/66 (90) 100 92 04/30/20 06:00 92 15 139/66 (90) 98 04/30/20 05:38 115 28 128/89 100 04/30/20 05:30 108 18 128/89 (102) 97 04/30/20 05:00 103 18 138/77 (97) 99 04/30/20 05:00 103 18 138/77 (97) 99 103 04/30/20 04:30 104 19 132/83 (99) 98 04/30/20 04:00 Room Air 04/30/20 04:00 108 04/30/20 04:00 99 20 132/81 (98) 97 04/30/20 04:00 99 20 132/81 (98) 97 99 04/30/20 03:30 113 21 142/81 (101) 97 04/30/20 03:00 111 22 139/76 (97) 97 04/30/20 03:00 111 22 139/76 (97) 97 111 04/30/20 02:30 119 24 134/72 (92) 97 04/30/20 02:30 102 23 134/75 98 04/30/20 02:00 113 22 139/84 98 04/30/20 02:00 114 22 145/91 (109) 98 114 04/30/20 02:00 114 22 145/91 (109) 98 04/30/20 01:30 114 28 155/67 (96) 97 04/30/20 01:00 114 24 139/84 (102) 89 04/30/20 01:00 114 24 139/84 (102) 95 111 04/30/20 00:30 114 19 134/81 (98) 94 04/30/20 00:30 114 19 134/81 (98) 94 114 04/30/20 00:00 98.9 124 30 142/86 (104) 94 124 04/30/20 00:00 Room Air 04/30/20 00:00 95 04/30/20 00:00 124 30 142/86 (104) 94 04/29/20 23:00 101 19 112/68 (83) 95 101 HEENT: normal ENT inspection RHYTHM: ST LUNGS: lungs clear bilaterally CARDIAC: normal rate, regular rhythm, normal S1 and S2 ABDOMEN: normal bowel sounds, non tender, soft, no organomegaly EXTREMITIES: No edema Microbiology Date/Time Source Procedure Growth Status 04/28/20 22:00 Nasal Nares MRSA Culture - Final Staphylococcus Aureus - Mrsa Complete Assessment/Plan Assessment/Plan Alcohol intoxication Alcohol withdrawal Alcoholism Homeless Hypomagnesemia See orders Drew Hackett MD Apr 30, 2020 23:06
[2020-05-01] VITALS: BP 128/78
--- NOTE | 2020-05-01 | NUR ---
NURSE NOTES: Pt pulled out library monitor and attempted to get out of bed. Pt is confused and unsteady. Reoriented pt and received orders for bilateral soft wrist restraints per Dr. Isaac. Will note and carry out.
--- NOTE | 2020-05-01 00:11 | NUR ---
NURSE NOTES: Pt lifted both legs and put it on side rails of bed and attempted to get out of bed. Put pt's legs back into bed. Pt continues to be on bilateral soft wrist restraints; skin intact, sensations and pulses present. No swelling noted. Will monitor pt closely.
[2020-05-01] MEDS: LORazepam Inj 2mg/ml 1ml IV PRN ×3 (00:32→09:48)
[2020-05-01] MEDS: cefTRIAXone 1 GM in D5W 55 ML IVPB SCH (01:19)
--- NOTE | 2020-05-01 02:05 | NUR ---
NURSE NOTES: Pt continues to be noncompliant. Pt kicked blankets on the ground and attempted to get out of restraints. Pt stated, "I want to drink some tequila!" Reorient pt that he is currently in the hospital and that alcoholic drinks are not serve in the hospital. Pt is still confused, but follows simple commands. Will continue to monitor pt closely.
--- NOTE | 2020-05-01 02:59 | NUR ---
NURSE NOTES: Pt complained of left chest pain non radiating. Completed EKG which showed NSR, HR 86 bpm. Noticed right eye was lazy and asked pt to open both eyes and smile which was symmetrical. Pt was able to raised both arms and legs. Reassessed pt 15 minutes later and pt said he felt better and no longer has chest pain. Pt stated, "I don't know. I see a lot of shadows. I see a red shadow over there in left corner." Reorient pt and told pt that it was a red biohazard trash can. Will continue to monitor pt closely.
[2020-05-01 04:00] VITALS: BP 141/82
--- NOTE | 2020-05-01 07:36 | NUR ---
NURSE HAND-OFF REPORT: Important Events on Shift: Pt is still confused in bilateral soft wrist restraints. Pt is currently asleep in bed. Complaint of CP non-radiating last night. EKG showed NSR. Dr. Isaac made aware. Patient Status: On-going/Stable Diet: Regular Pending Orders: N Pending Results/Labs: AM Labs Pending MD notification: N Latest Vital Signs: Temperature 97.9 , Pulse 83 , B/P 139 /83 , Respiratory Rate 21 , O2 SAT 96 , Room Air, O2 Flow Rate . EKG Rhythm: Sinus Rhythm Rhythm change?: N Latest Mo Fall Score: 50 Fall Risk: High Risk Safety Measures: Call light Within Reach, Bed Alarm Zone 1, Side Rails Side Rails x3, Bed position Low and Locked. Fall Precautions: Yellow Socks Yellow Gown Door Sign Patient Fall Education Report given to ALCIDES Ramirez.
[2020-05-01 08:00] VITALS: BP 123/72
--- NOTE | 2020-05-01 08:37 | NUR ---
Advanced Seal Delivery System: pt in bed resting. pt on telemetry monitor no signs of cardiac or respiratory distress. Bed in lowest position, call light within reach. pt has no complains of pain. will continue to monitor.
[2020-05-01 08:43] LABS: BASOPHILS % (AUTO) 1.8 % (0.0-2.0); EOSINOPHILS % (AUTO) 5.6 % (0.0-3.0); HEMATOCRIT 38.6 % (42.0-52.0); LYMPHOCYTES % (AUTO) 26.8 % (20.0-45.0); MEAN CORPUSCULAR VOLUME 90 FL (80-99); MONOCYTES % (AUTO) 9.1 % (1.0-10.0); NEUTROPHILS % (AUTO) 56.7 % (45.0-75.0); PLATELET COUNT 315 K/UL (150-450); RED BLOOD COUNT 4.29 M/UL (4.70-6.10); RED CELL DISTRIBUTION WIDTH 16.9 % (11.6-14.8); WHITE BLOOD COUNT 5.8 K/UL (4.8-10.8)
[2020-05-01 08:59] LABS: ALANINE AMINOTRANSFERASE 26 U/L (12-78); ALBUMIN 2.8 G/DL (3.4-5.0); ALBUMIN/GLOBULIN RATIO 0.8 (1.0-2.7); ALKALINE PHOSPHATASE 85 U/L (46-116); ANION GAP 10 mmol/L (5-15); ASPARTATE AMINO TRANSFERASE 30 U/L (15-37); BILIRUBIN,TOTAL 0.5 MG/DL (0.2-1.0); BLOOD UREA NITROGEN 2 mg/dL (7-18); CALCIUM 8.7 MG/DL (8.5-10.1); CARBON DIOXIDE 27 MMOL/L (21-32); CHLORIDE 103 MMOL/L (98-107); CREATININE 0.6 MG/DL (0.55-1.30); PHOSPHORUS 3.8 MG/DL (2.5-4.9); POTASSIUM 3.1 MMOL/L (3.5-5.1); SODIUM 139 MMOL/L (136-145)
[2020-05-01] MEDS ORDERED: Lactulose 20gm/30ml UDC ORAL SCH (09:00)
[2020-05-01] MEDS ORDERED: Vancomycin 750mg/D5W 275ml IVPB SCH ×2 (09:00)
[2020-05-01 09:25] LABS: AMMONIA 21 umol/L (11-32)
[2020-05-01] MEDS: Heparin 5000 units/ml inj SUBQ SCH ×2 (09:57→21:07)
[2020-05-01] MEDS: Pantoprazole Inj IVP SCH (09:58)
--- NOTE | 2020-05-01 10:04 | NUR ---
NURSE NOTES: Received result from lab pt is positive VRE Rectum, CN Jaye is notified..
--- NOTE | 2020-05-01 11:38 | NUR ---
CASE MANAGEMENT:REVIEW 05/01/20 SI: ALCOHOL WITHDRAWAL. AMS. COVID NEGATIVE 96.3 70 18 123/72 92% ON RA H/H-12.0/38.6 K-3.1 IS: IV ROCEPHIN Q24 IVF@75/HR IV PROTONIX QD IV PROTONIX QD HEPARIN SQ Q12 : STEP DOWN UNIT DCP: HOMELESS PLAN: DOWNGRADE TO TELEMETRY NON VIOLENT RESTRAINTS
[2020-05-01 12:00] VITALS: BP 132/76
--- NOTE | 2020-05-01 12:00 | NUR ---
NURSE NOTES: pt transferred in safe condition to Tele. Pt awake and alert and talking. all belongings were brought with pt. Iv intact . Bed in lowest position. Call light within reach.
--- NOTE | 2020-05-01 15:06 | NUR ---
DRY CELL SEALER NOTE SW met w/ pt and discussed prelim dc plan. PT reports he is feeling much better than previous day. Pt reports he will not be able to live w/ his children as they resides in a section 8 housing. Pt said "I don't like living in [place]". Pt declined placement assistance d/t lack of funding. Pt reports he will work when his condition gets better and will find housing his own. SW provided the community resource packet and the list of winter shelters. SW explained negative ramification of unlicensed facilities/self-directing. Prelim dc plan: own resource to preferred location if pt is medically cleared w/ bus pass.
[2020-05-01 16:00] VITALS: BP 120/70
--- NOTE | 2020-05-01 19:26 | NUR ---
NURSE HAND-OFF REPORT: Important Events on Shift:[Transfer from SDU] Patient Status: [Full code] Diet: [Regular] Pending Orders: [N/A] Pending Results/Labs:[N/A] Pending MD notification:[N/A] Latest Vital Signs: Temperature 98.0 , Pulse 84 , B/P 120 /70 , Respiratory Rate 18 , O2 SAT 97 , Room Air, O2 Flow Rate . Vital Sign Comment: [] EKG Rhythm: Sinus Rhythm Rhythm change?: N MD Notified?: Nan Hackett MD Response: Latest Mo Fall Score: 50 Fall Risk: High Risk Safety Measures: Call light Within Reach, Bed Alarm Zone 1, Side Rails Side Rails x3, Bed position Low and Locked. Fall Precautions: Yellow Socks Yellow Gown Door Sign Patient Fall Education Report given to [ALCIDES Littlejohn].
[2020-05-01 20:00] VITALS: BP 120/69
[2020-05-02] VITALS: BP 129/65
--- NOTE | 2020-05-02 02:35 | Cardiology Progress Note ---
Subjective DATE OF SERVICE: May 01, 2020 Still with confusion, but more directable No fevers Placement efforts in progress; options d/w case reviewer. Objective Last 24 Hour Vital Signs Date Time Temp Pulse Resp B/P (MAP) Pulse Ox O2 Delivery O2 Flow Rate FiO2 05/02/20 00:00 Room Air 05/02/20 00:00 96 05/02/20 00:00 97.9 85 16 129/65 (86) 97 05/01/20 20:00 94 05/01/20 20:00 Room Air 05/01/20 20:00 98.6 94 18 120/69 (86) 96 05/01/20 16:00 Room Air 05/01/20 16:00 98.0 87 18 120/70 (87) 97 05/01/20 16:00 84 05/01/20 12:00 97.8 90 18 132/76 (94) 97 05/01/20 12:00 Room Air 05/01/20 12:00 84 05/01/20 11:39 96 05/01/20 10:18 92 20 140/83 94 05/01/20 09:48 98 20 140/83 96 05/01/20 08:00 96.3 70 18 123/72 (89) 92 05/01/20 08:00 Room Air 05/01/20 07:55 83 05/01/20 04:38 83 21 139/83 96 05/01/20 04:08 82 20 141/82 97 05/01/20 04:00 97.9 87 19 141/82 (101) 97 05/01/20 04:00 86 05/01/20 04:00 Room Air HEENT: normal ENT inspection RHYTHM: ST LUNGS: lungs clear bilaterally CARDIAC: normal rate, regular rhythm, normal S1 and S2 ABDOMEN: normal bowel sounds, non tender, soft, no organomegaly EXTREMITIES: No edema Laboratory Tests Test 05/01/20 08:18 05/01/20 17:19 White Blood Count 5.8 K/UL (4.8-10.8) Red Blood Count 4.29 M/UL (4.70-6.10) L Hemoglobin 12.0 G/DL (14.2-18.0) L Hematocrit 38.6 % (42.0-52.0) L Mean Corpuscular Volume 90 FL (80-99) Mean Corpuscular Hemoglobin 28.0 PG (27.0-31.0) Mean Corpuscular Hemoglobin Concent 31.2 G/DL (32.0-36.0) L Red Cell Distribution Width 16.9 % (11.6-14.8) H Platelet Count 315 K/UL (150-450) Mean Platelet Volume 7.1 FL (6.5-10.1) Neutrophils (%) (Auto) 56.7 % (45.0-75.0) Lymphocytes (%) (Auto) 26.8 % (20.0-45.0) Monocytes (%) (Auto) 9.1 % (1.0-10.0) Eosinophils (%) (Auto) 5.6 % (0.0-3.0) H Basophils (%) (Auto) 1.8 % (0.0-2.0) Sodium Level 139 MMOL/L (136-145) Potassium Level 3.1 MMOL/L (3.5-5.1) L Chloride Level 103 MMOL/L (98-107) Carbon Dioxide Level 27 MMOL/L (21-32) Anion Gap 10 mmol/L (5-15) Blood Urea Nitrogen 2 mg/dL (7-18) L Creatinine 0.6 MG/DL (0.55-1.30) Estimat Glomerular Filtration Rate > 60 mL/min (>60) Glucose Level 95 MG/DL (74-106) Calcium Level 8.7 MG/DL (8.5-10.1) Phosphorus Level 3.8 MG/DL (2.5-4.9) Magnesium Level 2.1 MG/DL (1.8-2.4) Total Bilirubin 0.5 MG/DL (0.2-1.0) Aspartate Amino Transf (AST/SGOT) 30 U/L (15-37) Alanine Aminotransferase (ALT/SGPT) 26 U/L (12-78) Alkaline Phosphatase 85 U/L (46-116) Ammonia 21 umol/L (11-32) Total Protein 6.4 G/DL (6.4-8.2) Albumin 2.8 G/DL (3.4-5.0) L Globulin 3.6 g/dL Albumin/Globulin Ratio 0.8 (1.0-2.7) L Arterial Blood pH 7.488 (7.350-7.450) Arterial Blood Partial Pressure CO2 36.2 mmHg (35.0-45.0) Arterial Blood Partial Pressure O2 72.3 mmHg (75.0-100.0) L Arterial Blood HCO3 26.8 mmol/L (22.0-26.0) H Arterial Blood Oxygen Saturation 94.2 % (95-100) L Arterial Blood Base Excess 3.5 (-2-2) H Desmond Test Positive Microbiology Date/Time Source Procedure Growth Status 04/29/20 03:00 Nasopharynx Coronavirus COVID-19 PCR ([facility]) - Final Complete Assessment/Plan Assessment/Plan Alcohol intoxication Alcohol withdrawal Alcoholism Homeless Hypomagnesemia See orders PT/OT evals in progress Drew Hackett MD May 02, 2020 02:35
[2020-05-02] MEDS: cefTRIAXone 1 GM in D5W 55 ML IVPB SCH (02:41)
[2020-05-02 04:00] VITALS: BP 123/71
--- NOTE | 2020-05-02 07:35 | NUR ---
NURSE HAND-OFF REPORT: Important Events on Shift:[IV changed] Patient Status: [Full code] Diet: [regular] Pending Orders: [] Pending Results/Labs:[] Pending MD notification:[] Latest Vital Signs: Temperature 98.2 , Pulse 86 , B/P 123 /71 , Respiratory Rate 20 , O2 SAT 97 , Room Air, O2 Flow Rate . Vital Sign Comment: [] EKG Rhythm: Sinus Rhythm Rhythm change?: N MD Notified?: Nan Hackett MD Response: Latest Mo Fall Score: 50 Fall Risk: High Risk Safety Measures: Call light Within Reach, Bed Alarm Zone 1, Side Rails Side Rails x3, Bed position Low and Locked. Fall Precautions: Yellow Socks Yellow Gown Door Sign Patient Fall Education Report given to [SARAH Hinds].
--- NOTE | 2020-05-02 07:40 | NUR ---
NURSE NOTES: PATIENT RECEIVED A/A/OX3, PERIODS OF FORGETFULNESS. ON BILATERAL SOFT WRISTS RESTRAINTS DUE TO ATTEMPT REMOVING DEVICES AND GETTING OUT OF BED. PATIENT REQUIRES REORIENTATION PERIODICALLY. ABLE TO FEED SELF WITH ASSISTANCE. NO ACUTE RESP DISTRESS NOTED. PIV PATENT AND INTACT. ON SLUDGE FILTRATION ATTENDANT INPLACED. DENIES OF PAIN/DISCOMFORT NOTED. KEPT BED IN THE LOWEST POSITON. SIDERAILS ARE UPX3. CALL LIGHT IS WITHIN EASY REACH. WILL CONT TO MONITOR.
[2020-05-02 08:00] VITALS: BP 132/81
[2020-05-02] MEDS: Heparin 5000 units/ml inj SUBQ SCH ×2 (08:45→21:00)
[2020-05-02] MEDS: Pantoprazole Inj IVP SCH (09:16)
[2020-05-02 12:00] VITALS: BP 121/72
[2020-05-02 16:00] VITALS: BP 132/82
--- NOTE | 2020-05-02 16:34 | NUR ---
NURSE NOTES: bilateral soft wrist restraints d/c'd by PMD. patient is able to follow instructions. will cont the plan of care.
--- NOTE | 2020-05-02 16:34 | Cardiology Progress Note ---
Subjective DATE OF SERVICE: May 02, 2020 Less confused Up in chair and eating No fevers Placement efforts in progress; options d/w gearcase assembler. Objective Last 24 Hour Vital Signs Date Time Temp Pulse Resp B/P (MAP) Pulse Ox O2 Delivery O2 Flow Rate FiO2 05/02/20 16:00 98.2 91 20 132/82 (99) 96 05/02/20 12:00 87 05/02/20 12:00 99.1 94 20 121/72 (88) 95 05/02/20 09:38 Room Air 05/02/20 09:10 98.2 05/02/20 08:00 97.7 94 20 132/81 (98) 96 05/02/20 08:00 97 05/02/20 04:00 Room Air 05/02/20 04:00 86 05/02/20 04:00 98.2 82 20 123/71 (88) 97 05/02/20 00:00 Room Air 05/02/20 00:00 96 05/02/20 00:00 97.9 85 16 129/65 (86) 97 05/01/20 20:00 94 05/01/20 20:00 Room Air 05/01/20 20:00 98.6 94 18 120/69 (86) 96 HEENT: normal ENT inspection RHYTHM: ST LUNGS: lungs clear bilaterally CARDIAC: normal rate, regular rhythm, normal S1 and S2 ABDOMEN: normal bowel sounds, non tender, soft, no organomegaly EXTREMITIES: No edema Laboratory Tests Test 05/01/20 17:19 Arterial Blood pH 7.488 (7.350-7.450) Arterial Blood Partial Pressure CO2 36.2 mmHg (35.0-45.0) Arterial Blood Partial Pressure O2 72.3 mmHg (75.0-100.0) L Arterial Blood HCO3 26.8 mmol/L (22.0-26.0) H Arterial Blood Oxygen Saturation 94.2 % (95-100) L Arterial Blood Base Excess 3.5 (-2-2) H Desmond Test Positive Assessment/Plan Assessment/Plan Alcohol intoxication Alcohol withdrawal Alcoholism Homeless Hypomagnesemia See orders PT/OT evals in progress Drew Hackett MD May 02, 2020 16:34
[2020-05-02] MEDS: Thiamine 100mg in D5W 55ml IVPB SCH (18:22)
[2020-05-02] MEDS: Folic Acid 1 MG, Magnesium Sulfate 2,000 MG, Multivitamin - 12 Injection 10 ML in Sodiu... IV SCH (18:22)
--- NOTE | 2020-05-02 18:55 | NUR ---
NURSE NOTES: MADE DR HERNANDEZ AWARE OF THE HEMATURIA JUST OCCURRED THIS TIME. NO C/O PAIN/DISCOMFORT NOTD.
--- NOTE | 2020-05-02 19:14 | NUR ---
NURSE HAND-OFF REPORT: Important Events on Shift:[d/cd christofer soft wrists restraints; monitor hemturia] Patient Status: [stable] Diet: [reg] Pending Orders: [labs] Pending Results/Labs:[am] Pending MD notification:[] Latest Vital Signs: Temperature 98.2 , Pulse 87 , B/P 132 /82 , Respiratory Rate 20 , O2 SAT 96 , Room Air, O2 Flow Rate . Vital Sign Comment: [] EKG Rhythm: Sinus Rhythm Rhythm change?: N MD Notified?: Nan Hackett MD Response: Latest Mo Fall Score: 50 Fall Risk: High Risk Safety Measures: Call light Within Reach, Bed Alarm Zone 2, Side Rails Side Rails x3, Bed position Low and Locked. Fall Precautions: Yellow Socks Yellow Gown Door Sign Patient Fall Education Report given to [radha].
--- NOTE | 2020-05-02 19:20 | NUR ---
NURSE NOTES: Received report from ALCIDES Hinds.Pt is A/O x2-3 and verbally responsive. No SOB or acute distress. No pain noted. Pt is asleep. Pt has a IV site intact and patent running banana bag @ 75ml/hr. Pt is on RA with saturation of 96%. Seizure precaution noted; side rails padded, oxygen and suction at bedside. Bed is in the lowest position with side rails x2 and locked. Call light and bedside table is within reach. No signs/symptoms of acute distress noted. Will continue plan of care.
[2020-05-02 20:00] VITALS: BP 132/76
--- NOTE | 2020-05-02 21:19 | NUR ---
NURSE NOTES: Pt still noted to have hematuria in the urinal and heparin was held.
[2020-05-03] VITALS: BP 130/74
[2020-05-03] MEDS: cefTRIAXone 1 GM in D5W 55 ML IVPB SCH (01:32)
[2020-05-03 04:00] VITALS: BP 126/75
--- NOTE | 2020-05-03 04:51 | NUR ---
NURSE NOTES: Pt IV site was pulled on accident. New IV inserted on left hand 22G which is patent and flushed.
--- NOTE | 2020-05-03 07:32 | NUR ---
NURSE HAND-OFF REPORT: Important Events on Shift: Pt having hematuria and heparin was held. New IV on Left hand 22G inserted. Patient Status: Stable Diet: Regular Pending Orders: Pending Results/Labs: Pending MD notification: Latest Vital Signs: Temperature 98.9 , Pulse 90 , B/P 126 /75 , Respiratory Rate 18 , O2 SAT 98 , Room Air, O2 Flow Rate . Vital Sign Comment: EKG Rhythm: Sinus Rhythm Rhythm change?: N MD Notified?: Nan Hackett MD Response: Latest Mo Fall Score: 35 Fall Risk: Medium Risk Safety Measures: Call light Within Reach, Bed Alarm Zone 2, Side Rails Side Rails x3, Bed position Low and Locked. Fall Precautions: Yellow Socks Yellow Gown Patient Fall Education Report given to [place].
--- NOTE | 2020-05-03 07:47 | NUR ---
NURSE NOTES: Received report from ALCIDES Freitas. Pt is stable on RA, no s/s or complaint of acute distress at this time. respirations are unlabored and even. Pt complaining of headache, tylenol to be given. pt urinal bedside to monitor for hematuria. Pt bed low and locked, call light inr each and bed alarm on. Pt verbalized understanding to call for help. TIM cevallos bedside at this time.
[2020-05-03 07:58] VITALS: BP 121/68
[2020-05-03] MEDS: Heparin 5000 units/ml inj SUBQ SCH ×2 (08:22→20:36)
--- NOTE | 2020-05-03 10:25 | NUR ---
NURSE NOTES: Pt sleeping in bed, stable, unlabored and even respirations at rest. pt was sleeping upon entering room. awoken by RN, pt reports no pain or distress at this time. bed safety measures engaged, call light in reach and Pt verbalized understanding to call for help.
--- NOTE | 2020-05-03 10:45 | NUR ---
NURSE NOTES: Contacted Dr Hackett regarding Pt stomach pain, tylenol previously given without alleviation. awaiting call back
--- NOTE | 2020-05-03 11:50 | NUR ---
NURSE NOTES: assisted Pt in shaving face, linen changed, partial bed bath. Pt independently eating lunch. stable on RA
[2020-05-03 12:00] VITALS: BP 127/73
--- NOTE | 2020-05-03 13:42 | NUR ---
NURSE NOTES: REGARDING DISCHARGE/ SOCIAL WORK: Pt WANTS help seeking placement. asked Pt multiple times. Pt needs [facility] placement please. Thank you.
--- NOTE | 2020-05-03 13:58 | NUR ---
NURSE NOTES: REGARDING SOCIAL WORK: Pt seeking halfway after discharge please. Pt also needs social work consult for SELF reported alcoholism. pt reports drinking after his ex left him and left his belongings outside their home. 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 Also reports that his children are unable to assist him, "they dont want me" poor coping. expresses he does not want to go back to the streets and needs help. Please see Pt. thank you
[2020-05-03] MEDS: LORazepam 1mg tab ORAL PRN ×2 (14:21→21:00)
[2020-05-03 15:46] VITALS: BP 106/70
[2020-05-03 16:02] LABS: ALANINE AMINOTRANSFERASE 21 U/L (12-78); ALBUMIN 2.7 G/DL (3.4-5.0); ALBUMIN/GLOBULIN RATIO 0.8 (1.0-2.7); ALKALINE PHOSPHATASE 66 U/L (46-116); ANION GAP 6 mmol/L (5-15); ASPARTATE AMINO TRANSFERASE 19 U/L (15-37); BILIRUBIN,TOTAL 0.3 MG/DL (0.2-1.0); BLOOD UREA NITROGEN 9 mg/dL (7-18); CALCIUM 8.2 MG/DL (8.5-10.1); CARBON DIOXIDE 26 MMOL/L (21-32); CHLORIDE 106 MMOL/L (98-107); CREATININE 0.6 MG/DL (0.55-1.30); POTASSIUM 3.8 MMOL/L (3.5-5.1); SODIUM 138 MMOL/L (136-145)
[2020-05-03 16:06] LABS: BASOPHILS % (AUTO) 1.6 % (0.0-2.0); EOSINOPHILS % (AUTO) 4.6 % (0.0-3.0); HEMATOCRIT 33.6 % (42.0-52.0); HEMOGLOBIN 10.8 G/DL (14.2-18.0); LYMPHOCYTES % (AUTO) 25.2 % (20.0-45.0); MEAN CORPUSCULAR VOLUME 92 FL (80-99); MONOCYTES % (AUTO) 9.7 % (1.0-10.0); NEUTROPHILS % (AUTO) 58.9 % (45.0-75.0); PLATELET COUNT 270 K/UL (150-450); RED BLOOD COUNT 3.64 M/UL (4.70-6.10); RED CELL DISTRIBUTION WIDTH 17.4 % (11.6-14.8); WHITE BLOOD COUNT 6.3 K/UL (4.8-10.8)
[2020-05-03] MEDS ORDERED: FOLIC ACID0.4 MG ORAL (16:23)
[2020-05-03] MEDS ORDERED: THIAMINE HCL500 MG PO (16:23)
--- NOTE | 2020-05-03 16:28 | Cardiology Progress Note ---
Subjective DATE OF SERVICE: May 03, 2020 Alert and cooperative Ambulatory with assist device No fevers Episodic hematuria noted; urine color clear. Placement efforts in progress; options d/w skilled nursing case manager. Objective Last 24 Hour Vital Signs Date Time Temp Pulse Resp B/P (MAP) Pulse Ox O2 Delivery O2 Flow Rate FiO2 05/03/20 15:59 85 05/03/20 15:46 98.9 85 20 106/70 (82) 98 05/03/20 14:51 86 18 127/73 95 05/03/20 14:46 97.9 05/03/20 14:21 86 20 127/73 95 05/03/20 12:00 97.9 85 20 127/73 (91) 95 05/03/20 12:00 86 05/03/20 09:00 Room Air 05/03/20 08:54 98.9 05/03/20 08:30 99.3 05/03/20 08:00 92 05/03/20 07:58 94 20 121/68 (85) 95 05/03/20 04:00 98.9 90 18 126/75 (92) 98 05/03/20 04:00 90 05/03/20 00:00 97.8 95 18 130/74 (92) 96 05/03/20 00:00 99 05/02/20 21:00 Room Air 05/02/20 20:00 97.6 89 16 132/76 (94) 95 05/02/20 16:40 87 HEENT: normal ENT inspection RHYTHM: ST LUNGS: lungs clear bilaterally CARDIAC: normal rate, regular rhythm, normal S1 and S2 ABDOMEN: normal bowel sounds, non tender, soft, no organomegaly EXTREMITIES: No edema Laboratory Tests Test 05/03/20 15:00 White Blood Count 6.3 K/UL (4.8-10.8) Red Blood Count 3.64 M/UL (4.70-6.10) L Hemoglobin 10.8 G/DL (14.2-18.0) L Hematocrit 33.6 % (42.0-52.0) L Mean Corpuscular Volume 92 FL (80-99) Mean Corpuscular Hemoglobin 29.6 PG (27.0-31.0) Mean Corpuscular Hemoglobin Concent 32.0 G/DL (32.0-36.0) Red Cell Distribution Width 17.4 % (11.6-14.8) H Platelet Count 270 K/UL (150-450) Mean Platelet Volume 6.8 FL (6.5-10.1) Neutrophils (%) (Auto) 58.9 % (45.0-75.0) Lymphocytes (%) (Auto) 25.2 % (20.0-45.0) Monocytes (%) (Auto) 9.7 % (1.0-10.0) Eosinophils (%) (Auto) 4.6 % (0.0-3.0) H Basophils (%) (Auto) 1.6 % (0.0-2.0) Sodium Level 138 MMOL/L (136-145) Potassium Level 3.8 MMOL/L (3.5-5.1) Chloride Level 106 MMOL/L (98-107) Carbon Dioxide Level 26 MMOL/L (21-32) Anion Gap 6 mmol/L (5-15) Blood Urea Nitrogen 9 mg/dL (7-18) Creatinine 0.6 MG/DL (0.55-1.30) Estimat Glomerular Filtration Rate > 60 mL/min (>60) Glucose Level 102 MG/DL (74-106) Calcium Level 8.2 MG/DL (8.5-10.1) L Magnesium Level 2.0 MG/DL (1.8-2.4) Total Bilirubin 0.3 MG/DL (0.2-1.0) Aspartate Amino Transf (AST/SGOT) 19 U/L (15-37) Alanine Aminotransferase (ALT/SGPT) 21 U/L (12-78) Alkaline Phosphatase 66 U/L (46-116) Total Protein 6.2 G/DL (6.4-8.2) L Albumin 2.7 G/DL (3.4-5.0) L Globulin 3.5 g/dL Albumin/Globulin Ratio 0.8 (1.0-2.7) L Assessment/Plan Assessment/Plan Alcohol intoxication Alcohol withdrawal Alcoholism Homeless Hypomagnesemia corrected Hematuria due to previous prior feliz trauma (patient pulled out catheter several days ago); no signs of infection or significant bleed - expect recovery without intervention. See orders Stable for discharge once nursing home/DME arranged Drew Hackett MD May 03, 2020 16:28
--- NOTE | 2020-05-03 16:28 | NUR ---
NURSE NOTES: Paged Dr Hackett regarding Pt social work/CM update. and sent MD labs from this afternoon. New orders place by Dr Hacektt. [facility] arry out
[2020-05-03] MEDS: Folic Acid 1 MG, Magnesium Sulfate 2,000 MG, Multivitamin - 12 Injection 10 ML in Sodiu... IV SCH (17:11)
[2020-05-03] MEDS: Thiamine 100mg in D5W 55ml IVPB SCH (17:11)
[2020-05-03] MEDS: Vitamin B12 1000mcg/ml Inj IM SCH (17:23)
--- NOTE | 2020-05-03 17:33 | NUR ---
NURSE HAND-OFF REPORT: Important Events on Shift: new IV on R hand 22g// complaining of stomach pain-Mylanta PRN// D/C 05/04 to alf, walker, f/u w/ CM, Pt needs to be seen by PT// Pt confused Patient Status: fc, stable Diet: regular Pending Orders: d/c Pending Results/Labs: Pending MD notification: Latest Vital Signs: Temperature 98.9 , Pulse 85 , B/P 106 /70 , Respiratory Rate 20 , O2 SAT 98 , Room Air, O2 Flow Rate . Vital Sign Comment: EKG Rhythm: Sinus Rhythm Rhythm change?: N MD Notified?: Y -Dr. Roxann REDDY Response: Latest Mo Fall Score: 35 Fall Risk: Medium Risk Safety Measures: Call light Within Reach, Bed Alarm Zone 2, Side Rails Side Rails x3, Bed position Low and Locked. Fall Precautions: Yellow Socks Yellow Gown Patient Fall Education Report to be given Addendum: 05/03/20 at 192 by Libertad Martinez RN RN Pt is stable, report given to ALCIDES Jose. Dr Hackett made aware Pt still has intermittent hematuria.
--- NOTE | 2020-05-03 18:14 | History and Physical Report ---
DATE OF ADMISSION: 04/28/2020 REASON FOR ADMISSION: Altered mentation with alcohol intoxication. HISTORY OF PRESENT ILLNESS: This 59-year-old male was brought into the emergency room by paramedics with altered mentation. No record is available on his actual name. He was found outside a liquor store. He apparently bought two bottles of vodka last night and he drank them overnight in front of the liquor store. In the emergency room, his status remained tenuous with tachycardia, labile blood pressure, and agitation. His tox screen was abnormal with alcohol level of 380 and a positive barbiturate and benzodiazepine screen. The patient was admitted to the intensive care unit for further care as he has required continuous IV benzodiazepine therapy for withdrawal. PAST MEDICAL HISTORY: Unknown. ALLERGIES: Not known. SOCIAL HISTORY: Notable for alcoholism, otherwise not known. PHYSICAL EXAMINATION: VITAL SIGNS: Blood pressure 138/104, pulse 138, respirations 26, and temperature 99.9. Oxygen saturation on room air 99%. GENERAL: Disheveled and poor hygiene. LUNGS: Bilateral breath sounds with few rhonchi. CARDIAC: Regular rhythm, rapid rate. Normal S1, S2. ABDOMEN: Soft. No ascites. EXTREMITIES: No edema. NEUROLOGIC: There is slight tremor. LABORATORY DATA: White count 2.5, hemoglobin 14.8. Albumin 3.7. Sodium 143, potassium 4.9, bicarb 24, BUN 7, creatinine 0.3. Glucose 110. IMPRESSION: 1. Alcohol intoxication. 2. Alcohol withdrawal. 3. Possible aspiration with pneumonia. 4. Leukopenia due to alcohol. 5. Metabolic encephalopathy. PLAN: 1. IV vitamin supplementation. 2. IV fluids. 3. Withdrawal precautions with benzodiazepines. 4. Seizure precaution. 5. ICU care. 6. Check COVID-19 swab for status. Drew Hackett M.D. DR: DUYEN JOB#: [id number] CC:
[2020-05-03 20:00] VITALS: BP 124/76
--- NOTE | 2020-05-03 20:01 | NUR ---
NURSE NOTES: Received report from ALCIDES Maurer. AAO x 3-4, on RA, resting in bed. Commode at bedside. IV site intact and patent. Denies pain or discomfort. No labored breathing, no acute distress noted at this time. Bed locked,lowest position, alarm on, side rails up, call light within reach. Will continue to monitor.
[2020-05-03] MEDS ORDERED: NS 275ml ONE (20:19)
[2020-05-03] MEDS ORDERED: NS 500ML ONE (20:19)
[2020-05-03] MEDS ORDERED: Tubing IV Secondary IV ONE (20:19)
--- NOTE | 2020-05-03 21:12 | NUR ---
NURSE NOTES: Urine collected and sent to the lab
[2020-05-03 22:23] LABS: APPEARANCE,URINE CLEAR; BILIRUBIN, URINE NEGATIVE (NEGATIVE); COLOR,URINE PALE YELLOW; GLUCOSE, URINE (UA) NEGATIVE (NEGATIVE); KETONES,URINE NEGATIVE (NEGATIVE); LEUKOCYTE ESTERASE ,URINE NEGATIVE (NEGATIVE); NITRITE,URINE NEGATIVE (NEGATIVE); PH,URINE 8 (4.5-8.0); PROTEIN,URINE NEGATIVE (NEGATIVE); UROBILINOGEN,URINE NORMAL MG/DL (0.0-1.0)
[2020-05-04] VITALS: BP 116/64
[2020-05-04 04:00] VITALS: BP 128/80
--- NOTE | 2020-05-04 06:50 | NUR ---
NURSE HAND-OFF REPORT: Important Events on Shift:urine blood +, pain on headache Patient Status: Diet: reg Pending Orders: Pending Results/Labs: Pending MD notification: Latest Vital Signs: Temperature 97.9 , Pulse 79 , B/P 128 /80 , Respiratory Rate 22 , O2 SAT 96 , Room Air, O2 Flow Rate . Vital Sign Comment: [] EKG Rhythm: Sinus Rhythm Rhythm change?: N MD Notified?: Nan Hackett MD Response: Latest Mo Fall Score: 35 Fall Risk: Medium Risk Safety Measures: Call light Within Reach, Bed Alarm Zone 2, Side Rails Side Rails x3, Bed position Low and Locked. Fall Precautions: Yellow Socks Yellow Gown Patient Fall Education Addendum: 05/04/20 at 0725 by MARY CARMEN CONNELL RN RN NURSE NOTES: Report given to Libertad
--- NOTE | 2020-05-04 07:27 | NUR ---
NURSE NOTES: Received report from ALCIDES Lorenzo. Pt is stable on RA, no s/s or complaint of acute distress at this time. respirations are unlabored and even. Pt is sleeping comfortably. pt urinal bedside to monitor for hematuria. Pt bed low and locked, call light inr each and bed alarm on.
[2020-05-04 08:00] VITALS: BP 128/75
[2020-05-04] MEDS: Heparin 5000 units/ml inj SUBQ SCH (08:09)
--- NOTE | 2020-05-04 08:09 | NUR ---
NURSE NOTES: Heparin held for hematuria
[2020-05-04] MEDS: Vitamin B12 1000mcg/ml Inj IM SCH (08:11)
[2020-05-04 11:37] VITALS: BP 127/73
--- NOTE | 2020-05-04 12:08 | NUR ---
P.T Note: P.T evaluation completed and tx initiated. Please refer to P.T evaluation for current functional status.
--- NOTE | 2020-05-04 12:41 | NUR ---
CASE MANAGEMENT:REVIEW 05/04/19 SI: ALCOHOL WITHDRAWAL. AMS. COVID NEGATIVE 97.9 96 20 127/73 97% ON RA IS: B12 IM QD PEPCID PO QD IV THIAMINE Q24 IV BANANA BAG IV ATIVAN Q6HRS PRN HEPARIN SQ Q12 IVF@75/HR : TELEMETRY STATUS DCP: HOMELESS ~ [facility] PLAN: DISCHARGE TODAY
--- NOTE | 2020-05-04 13:30 | NUR ---
NURSE NOTES: After speaking to case management, pt felt pressured that he had to quickly leave and seek senior care for tonight. pt was previously provided with information regarding alcohol withdraw and homeless senior care and resources. pt adamant about leaving right this second. pt did not want my assistance seeking transportation, asking where [address] was. pt went to ask sample book maker. Pt IV, tele box and Id band removed. Pt provided with nutrition, but did not want to take all of it. Pt provided two sets of clothing, appropriate for weather. pt AOx4 at time of departure. pt left with walker. Pt stable on RA, no pain. Dr Hackett notified of Pt discharge with hematuria and weakness, no response. pt left without incident.
--- NOTE | 2020-05-07 14:56 | Discharge Summary ---
Discharge Summary Discharge Summary _ DATE OF ADMISSION: 04/28/20 DATE OF DISCHARGE: 05/04/20 DISCHARGED BY: REASON FOR ADMISSION: 65 years old male with unknown past medical history , homeless, was brought to emergency department by paramedics with altered mental status. He was found outside off a liquor store . He apparently bought 2 bottles of vodka last night and drank them overnight in front of the liquor store. In emergency department he was agitated , blood pressure was labile , and he was tachycardic. Serum alcohol level 380. Toxicology screen was positive for barbiturates and benzodiazepine. Patient initially admitted to ICU for further management. HOSPITAL COURSE: Patient admitted to ICU and started on Ativan drip to prevent benzodiazepine withdrawal. Patient also started on IV fluids with vitamins and minerals. Seizure precautions maintained. COVID-19 was negative. Urine culture was negative. Renal parameters and electrolytes were closely monitored. Potassium and magnesium were replaced. DVT prophylaxis provided. Mental status returned to normal as patient clinically improved . forestry workers met with the patient. Patient declined placement assistance. Patient was provided with community resource packet and list of [facility] shelters. Bus pass provided. The treating physician had assessed and agreed that patient was medically stable for discharge to an outpatient disposition. FINAL DIAGNOSES: Alcohol intoxication Alcohol withdrawal Alcoholism Homeless Hypomagnesemia Toxic encephalopathy likely due to alcohol intoxication- resolved DISCHARGE MEDICATIONS: See Medication Reconciliation list. DISCHARGE INSTRUCTIONS: Patient was discharged to outpatient disposition I have been assigned to dictate discharge summary for this account. I was not involved in the patient's management. Sobeida Barroso NP May 07, 2020 14:56
== END 2020-05-04 13:15 | disposition other institution (70) | DRG 775 ==
LOC: EDBD 08:34 → EMR 10:11 → ICU 21:23 → EDBD 21:23 → EDBEDREQ 21:52 → 2W 04-30 06:18 → 2E 05-01 12:00
DX: F10.239 Alcohol dependence with withdrawal, unspecified (principal); F10.129 Alcohol abuse with intoxication, unspecified; G92 Toxic encephalopathy; Z59.0 Homelessness; E83.42 Hypomagnesemia
CPT/HCPCS: 36415; 70450; 71045; 80053; 80307; 81001; 82140; 82803; 83735; 84100; 84443; 85007; 85025; 87081; 87086; 93005; 96361; 96372; 96374; 96376; 99285; G0480; J1815; J7030; J8499